=== PATIENT | female | born 1960 | race Caucasian/White ===

== ENCOUNTER 2020-10-11 11:52 | Outpatient (REF) | payer BC, SELFPAY ==
[2020-10-11 14:08] LABS: MANUAL DIFF FLAG NO
[2020-10-11 14:11] LABS: Glucose Urine UA NEG (NEG); Leukocyte Esterase Urine NEG (NEG); Nitrite Urine NEG (NEG); PH 6.5 (5.0-8.0); Specific Gravity - Urine 1.015 (1.005-1.025); Urine Blood NEG (NEG); Urine Ketones NEG (NEG); Urine Protein NEG (NEG-TRACE)
[2020-10-11 14:17] LABS: Basophils Percent Auto 0.4 % (0-2); Eosinophils Absolute Auto 0.2 X10*3/uL (0.0-0.4); Eosinophils Percent Auto 2.7 % (0-4); Hematocrit 43.7 % (37-47); Hemoglobin 14.2 g/dl (12.0-16.0); Imm Gran Abs Auto 0.05 X10*3/uL (0.00-0.03); Imm Gran Pct Auto 0.7 % (0.0-0.4); Lymphocytes Absolute Auto 1.6 X10*3/uL (1.2-4.9); Lymphocytes Percent Auto 21.9 % (20-40); Mean Corpuscular HGB Conc 32.5 g/dl (31.0-35.0); Mean Corpuscular Hemoglobin 29.9 pg (27.0-33.0); Mean Platelet Volume 11.2 fL (9.4-12.3); Monocytes Absolute Auto 0.5 X10*3/uL (0.1-1.2); Monocytes Percent Auto 6.8 % (2-11); Neutrophils Percent Auto 67.5 % (45-73); Platelet Count 377 X10*3/uL (160-400); Red Blood Count 4.75 X10*6/uL (4.20-5.50); Red Cell Distribution Width 12.2 % (11.0-16.0); White Blood Count 7.5 X10*3/uL (4.8-10.8)
[2020-10-11 14:23] LABS: Appearance Urine HAZY; Color Urine YELLOW
[2020-10-11 14:40] LABS: Bacteria Urine 1+ /LPF; RBC Urine 0-2 /HPF (0); Squamous Epithelial Cell Urine 2+ /LPF; WBC Urine 0-2 /HPF (0-4)
[2020-10-11 14:59] LABS: Alanine Aminotransferase 29 U/L (0-31); Albumin Level 4.4 g/dL (3.5-5.0); Alkaline Phosphatase 45 U/L (39-117); Anion Gap 14 (12-20); Aspartate Amino Transferase 22 U/L (5-31); Bilirubin Total 0.9 mg/dL (0.0-1.0); Blood Urea Nitrogen 13 mg/dL (9-16); Calcium 9.7 mg/dL (8.4-10.2); Carbon Dioxide 29 mmol/L (22-29); Chloride 103 mmol/L (96-108); Cholesterol 207 mg/dL; Estimated Glomerular Filt Rate > 60; Glucose Fasting 87 mg/dL (60-99); HDL Cholesterol 83 mg/dL; LDL Cholesterol Calculated 116 mg/dl; Sodium 141 mmol/L (135-145); Triglycerides 40 mg/dL
[2020-10-11 15:03] LABS: Thyroid Stimulating Hormone 1.52 uIU/mL (0.32-4.0); Vitamin D 25-OH Total 32.9 ng/mL (>30)
== END 2020-10-11 11:53 | disposition home or self-care (01) ==
LOC: HO.HMGCLDS 11:52
PROVIDERS: PCP Internal Medicine; Visit Provider Internal Medicine
DX: Z00.00 Encounter for general adult medical examination without abnormal findings (principal); F32.9 Major depressive disorder, single episode, unspecified; J45.40 Moderate persistent asthma, uncomplicated; E55.9 Vitamin D deficiency, unspecified
CPT/HCPCS: 36415; 80053; 80061; 81001; 82306; 84443; 85025

== ENCOUNTER 2020-10-20 16:03 | Outpatient (REF) | payer BC, SELFPAY ==
--- NOTE | ~2020-10-20 | XR_ITS ---
EXAMINATION: XR KNEE, LEFT CLINICAL INFORMATION: Pain left knee COMPARISON: None TECHNIQUE: Four views of the left knee. FINDINGS: The tricompartment joint space with its maintain normal. No bony erosive changes seen. There is no visible fracture or dislocation. There is sclerotic density along the posterior margin of distal femur. Likely No abnormal joint effusion seen. XR/XR knee LT 4V IMPRESSION: Unremarkable left knee exam except for sclerotic lesion distal femur along the posterior cortical margin. There is no periosteal reaction or endosteal scalloping or thickening. Question nonossifying fibroma, fibrous dysplasia, osteoblastoma or enchondroma.
== END 2020-10-20 16:04 | disposition home or self-care (01) ==
LOC: HO.HMGCX 16:03
PROVIDERS: PCP Internal Medicine; Visit Provider Nurse Practitioner Family
DX: M25.562 Pain in left knee (principal)
CPT/HCPCS: 73564

== ENCOUNTER → 2020-10-26 10:13 | Outpatient (BNVA) | payer BC, SELFPAY | PROVIDERS: PCP Internal Medicine; Visit Provider Orthopaedic Surgery ==

== ENCOUNTER 2022-02-24 14:29 | Outpatient (REF) | payer BC, SELFPAY ==
[2022-02-24 16:23] LABS: MANUAL DIFF FLAG NO
[2022-02-24 16:28] LABS: Basophils Percent Auto 0.4 % (0-2); Eosinophils Absolute Auto 0.2 X10*3/uL (0.0-0.4); Eosinophils Percent Auto 3.6 % (0-4); Hematocrit 42.4 % (37.0-47.0); Hemoglobin 14.2 g/dl (12.0-16.0); Imm Gran Abs Auto 0.02 X10*3/uL (0.00-0.03); Imm Gran Pct Auto 0.4 % (0.0-0.4); Lymphocytes Absolute Auto 1.5 X10*3/uL (1.2-4.9); Lymphocytes Percent Auto 32.4 % (20-40); Mean Corpuscular HGB Conc 33.5 g/dl (31.0-35.0); Mean Corpuscular Hemoglobin 29.8 pg (27.0-33.0); Mean Corpuscular Volume 89.1 fL (80.0-98.0); Mean Platelet Volume 11.3 fL (9.4-12.3); Monocytes Absolute Auto 0.4 X10*3/uL (0.1-1.2); Monocytes Percent Auto 7.4 % (2-11); Neutrophils Absolute Auto 2.7 x10*3/uL (2.0-8.3); Neutrophils Percent Auto 55.8 % (45-73); Platelet Count 299 X10*3/uL (160-400); Red Blood Count 4.76 X10*6/uL (4.20-5.50); Red Cell Distribution Width 12.3 % (11.0-16.0); White Blood Count 4.8 X10*3/uL (4.8-10.8)
[2022-02-24 16:40] LABS: Alanine Aminotransferase 22 U/L (0-31); Albumin Level 4.3 g/dL (3.5-5.0); Alkaline Phosphatase 38 U/L (39-117); Anion Gap 14 (12-20); Aspartate Amino Transferase 20 U/L (5-31); Bilirubin Total 0.7 mg/dL (0.0-1.0); Blood Urea Nitrogen 11 mg/dL (9-16); Calcium 9.6 mg/dL (8.4-10.2); Carbon Dioxide 27 mmol/L (22-29); Chloride 105 mmol/L (96-108); Cholesterol 188 mg/dL; Estimated Glomerular Filt Rate > 60; Glucose Fasting 82 mg/dL (60-99); HDL Cholesterol 75 mg/dL; LDL Cholesterol Calculated 105 mg/dl; Potassium 4.1 mmol/L (3.3-5.1); Sodium 142 mmol/L (135-145); Total Protein 6.7 g/dL (6.5-8.0); Triglycerides 42 mg/dL
[2022-02-24 17:00] LABS: Vitamin D 25-OH Total 33.6 ng/mL (>30)
== END 2022-02-24 14:30 | disposition home or self-care (01) ==
LOC: HO.HMGCLDS 14:29
PROVIDERS: PCP Internal Medicine; Visit Provider Internal Medicine
DX: Z00.00 Encounter for general adult medical examination without abnormal findings (principal); J45.40 Moderate persistent asthma, uncomplicated; E55.9 Vitamin D deficiency, unspecified; F32.9 Major depressive disorder, single episode, unspecified; E66.09 Other obesity due to excess calories; Z68.39 Body mass index [BMI] 39.0-39.9, adult
CPT/HCPCS: 36415; 80053; 80061; 82306; 85025

== ENCOUNTER 2022-03-16 13:23 | Outpatient (REF) | payer BC, SELFPAY ==
--- NOTE | ~2022-03-16 | MM_ITS ---
EXAMINATION: BONE DENSITOMETRY CLINICAL INDICATION: Osteoporosis. COMPARISON: Previous BD dated 11/15/2018 and baseline BD dated 04/09/2015. TECHNIQUE: Using a [employer] DXA System (software version: 13.1) manufactured by [employer], dual-energy x-ray absorptiometry was performed of the lumbar spine and left hip. The images are of good technical quality. Summary results are attached. FINDINGS: AP SPINE L1-L2 (excluding L3 and L4): The data of L1-L4 has been changed to exclude the L3 and L4 vertebral bodies, because mild degenerative changes at these levels may cause overestimation of lumbar spine density. Current: BMD 0.905 g/cm2, Z-score -2.0, T-score -2.2, osteopenia, 17.1% increase from previous, 15.6% increase from baseline (<5% change is not significant). Prior: BMD 0.773 g/cm2. Baseline: BMD 0.783 g/cm2. LEFT FEMUR, NECK: Current: BMD 0.813 g/cm2, Z-score -1.0, T-score -1.6, osteopenia. Prior: BMD 0.774 g/cm2. Baseline: BMD 0.833 g/cm2. LEFT FEMUR, TOTAL: Current: BMD 0.992 g/cm2, Z-score 0.1, T-score -0.1, normal, 8.7% increase from previous, 4.6% increase from baseline (<5% change is not significant). Prior: BMD 0.913 g/cm2. Baseline: BMD 0.948 g/cm2. IDENTIFIED RISK FACTORS: Menopause. HISTORY OF FRACTURE: None listed. MEDICATIONS: Calcium, vitamin D, bisphosphonate. MM/XR DEXA axial skeleton IMPRESSION: 1. DIAGNOSIS: Osteopenia based on the lowest T-score value of -2.2 in the lumbar spine applying World Health Organization criteria. 2. 10-YEAR FRACTURE RISK PREDICTION, FRAX: Not performed in this patient on estrogen or bone building treatments. 3. Treatment Recommendations: NOF guidelines recommend consideration for treatment in postmenopausal women and men age 50 and older presenting with the following: -A hip or vertebral (clinical or morphometric) fracture. -T-score less than or equal to -2.5 at the femoral neck or spine after appropriate evaluation to exclude secondary causes. -Low bone mass at the hip or spine and a 10-year fracture probability by FRAX of greater than or equal to 3% for hip fracture or greater than or equal to 20% for major osteoporotic fracture based on the [place] adapted WHO algorithm. 4. Other Recommendations: All treatment decisions require clinical judgment and consideration of individual patient factors, including patient preferences, comorbidities, previous drug use, risk factors not captured in the FRAX model (e.g. frailty, falls, vitamin D deficiency, increased bone turnover, interval significant decline in bone density) and possible under or overestimation of fracture risk by FRAX. Additional medical evaluation for secondary cause of low bone mineral density may be appropriate. FUTURE SCAN RECOMMENDATION: People with diagnosed cases of osteoporosis or at high risk for fracture should have regular bone mineral density tests. For patients eligible for Medicare, routine testing is allowed once every 2 years. The testing frequency can be increased to one year for patients who have rapidly progressing disease, those who are receiving or discontinuing medical therapy to restore bone mass, or have additional risk factors.
--- NOTE | ~2022-03-16 | MM_ITS ---
EXAMINATION: MM SCREENING DIGITAL BREAST TOMOSYNTHESIS, BILATERAL CLINICAL INFORMATION: Screening. Asymptomatic. The lifetime risk of breast cancer based on the Tyrer-Cuzick Model is %. Additional annual screening with breast MRI may be of benefit in women with a score of 20% or greater. COMPARISON: Mammography: November 21, 2019 and studies dating back to April 28, 2009 TECHNIQUE: Digital breast tomosynthesis is performed in both the craniocaudal and mediolateral oblique views along with computer-aided detection (CAD). Synthesized 2D images are generated from the tomosynthesis. FINDINGS: The breasts are almost entirely fatty (ACR BI-RADS breast composition Category a). There are no new significant masses, abnormal calcifications, or other abnormalities. MM/MM tomosynthesis screening BI IMPRESSION: No significant changes from prior exam. ASSESSMENT: BI-RADS 1: Negative RECOMMENDATION: Routine annual mammography screening. This patient's information was entered into a reminder system with a target due date for their next mammogram.
== END 2022-03-16 13:24 | disposition home or self-care (01) ==
LOC: HO.MAMMO 13:23
PROVIDERS: Visit Provider Obstetrics & Gynecology
DX: Z12.31 Encounter for screening mammogram for malignant neoplasm of breast (principal); M81.0 Age-related osteoporosis without current pathological fracture; Z78.0 Asymptomatic menopausal state; Z79.83 Long term (current) use of bisphosphonates
CPT/HCPCS: 77063; 77067; 77080

== ENCOUNTER 2023-03-19 13:20 | Outpatient (REF) | payer BC, SELFPAY ==
--- NOTE | ~2023-03-19 | MM_ITS ---
EXAMINATION: MM SCREENING DIGITAL BREAST TOMOSYNTHESIS, BILATERAL CLINICAL INFORMATION: Screening. Asymptomatic. COMPARISON: Mammography: This study is compared with prior exams dating back to 2017. TECHNIQUE: Digital breast tomosynthesis is performed in both the craniocaudal and mediolateral oblique views along with computer-aided detection (CAD). Synthesized 2D images are generated from the tomosynthesis. FINDINGS: The breasts are almost entirely fatty (ACR BI-RADS breast composition Category a). There are no significant masses, abnormal calcifications, or other abnormalities. MM/MM tomosynthesis screening BI IMPRESSION: No mammographic evidence of malignancy. ASSESSMENT: BI-RADS BI-RADS 1 - Negative RECOMMENDATION: Routine annual mammography screening. 1 year F/U This examination should not preclude the clinical evaluation of a suspicious palpable abnormality. This patient's information was entered into a reminder system with a target due date for their next mammogram.
== END 2023-03-19 13:21 | disposition home or self-care (01) ==
LOC: HO.MAMMO 13:20
PROVIDERS: PCP Internal Medicine; Visit Provider Internal Medicine
DX: Z12.31 Encounter for screening mammogram for malignant neoplasm of breast (principal)
CPT/HCPCS: 77063; 77067

== ENCOUNTER → 2023-03-19 13:30 | Outpatient (BNV) | payer BC, SELFPAY | PROVIDERS: PCP Internal Medicine; Visit Provider Radiology Diagnostic Radiology | DX: Z12.31 Encounter for screening mammogram for malignant neoplasm of breast (principal) | CPT/HCPCS: 77063; 77067 ==

== ENCOUNTER 2024-03-21 14:57 | Outpatient (REF) | payer BC, SELFPAY ==
[2024-03-21 16:21] LABS: MANUAL DIFF FLAG NO
[2024-03-21 16:33] LABS: Basophils Percent Auto 0.5 % (0-2); Eosinophils Absolute Auto 0.2 X10*3/uL (0.0-0.4); Eosinophils Percent Auto 3.4 % (0-4); Hematocrit 40.6 % (37.0-47.0); Hemoglobin 13.2 g/dl (12.0-16.0); Imm Gran Abs Auto 0.02 X10*3/uL (0.00-0.03); Imm Gran Pct Auto 0.3 % (0.0-0.4); Lymphocytes Absolute Auto 1.7 X10*3/uL (1.2-4.9); Lymphocytes Percent Auto 27.4 % (20-40); Mean Corpuscular HGB Conc 32.5 g/dl (31.0-35.0); Mean Corpuscular Hemoglobin 29.7 pg (27.0-33.0); Mean Corpuscular Volume 91.4 fL (80.0-98.0); Mean Platelet Volume 10.7 fL (9.4-12.3); Monocytes Absolute Auto 0.6 X10*3/uL (0.1-1.2); Neutrophils Absolute Auto 3.7 x10*3/uL (2.0-8.3); Neutrophils Percent Auto 59.4 % (45-73); Platelet Count 311 X10*3/uL (160-400); Red Blood Count 4.44 X10*6/uL (4.20-5.50); Red Cell Distribution Width 12.7 % (11.0-16.0); White Blood Count 6.2 X10*3/uL (4.8-10.8)
[2024-03-21 17:05] LABS: Alanine Aminotransferase 24 U/L (0-31); Albumin Level 3.9 g/dL (3.5-5.0); Alkaline Phosphatase 40 U/L (39-117); Anion Gap 8 (12-20); Aspartate Amino Transferase 22 U/L (5-31); Bilirubin Total 0.9 mg/dL (0.0-1.0); Blood Urea Nitrogen 16 mg/dL (9-16); Calcium 9.1 mg/dL (8.4-10.2); Carbon Dioxide 30 mmol/L (22-29); Chloride 107 mmol/L (96-108); Cholesterol 186 mg/dL (<200); Estimated Glomerular Filt Rate > 60; Glucose Fasting 81 mg/dL (60-99); HDL Cholesterol 81 mg/dL (>40); LDL Cholesterol Calculated 96 mg/dL (<100); Potassium 4.2 mmol/L (3.3-5.1); Sodium 141 mmol/L (135-145); Total Protein 6.5 g/dL (6.5-8.0); Triglycerides 47 mg/dL (<150)
[2024-03-21 17:09] LABS: Thyroid Stimulating Hormone 1.27 uIU/mL (0.32-4.0); Vitamin D 25-OH Total 42.5 ng/mL (>30)
== END 2024-03-21 14:58 | disposition home or self-care (01) ==
LOC: HO.HMGCLDS 14:57
PROVIDERS: PCP Internal Medicine; Visit Provider Internal Medicine
DX: E66.01 Morbid (severe) obesity due to excess calories (principal); J45.40 Moderate persistent asthma, uncomplicated; E55.9 Vitamin D deficiency, unspecified; F32.9 Major depressive disorder, single episode, unspecified; Z12.11 Encounter for screening for malignant neoplasm of colon
CPT/HCPCS: 36415; 80053; 80061; 82306; 84443; 85025

== ENCOUNTER 2024-03-24 13:30 | Outpatient (REF) | payer BC, SELFPAY ==
--- NOTE | ~2024-03-24 | MM_ITS ---
EXAMINATION: MM SCREENING DIGITAL BREAST TOMOSYNTHESIS, BILATERAL CLINICAL INFORMATION: Screening. Asymptomatic. COMPARISON: Mammography: Comparison is made with available priors TECHNIQUE: Digital breast mammography with tomosynthesis is performed in both the craniocaudal and mediolateral oblique views along with computer-aided detection (CAD). FINDINGS: There are scattered areas of fibroglandular density (ACR BI-RADS breast composition Category b). There are no significant masses, abnormal calcifications, or other abnormalities. MM/MM tomosynthesis screening BI IMPRESSION: No mammographic evidence of malignancy. ASSESSMENT: BI-RADS BI-RADS 1 - Negative RECOMMENDATION: Routine annual mammography screening. 1 year F/U This examination should not preclude the clinical evaluation of a suspicious palpable abnormality. This patient's information was entered into a reminder system with a target due date for their next mammogram. Electronically signed by: Leslie Parks DO 04/04/2024 10:48 AM EDT
== END 2024-03-24 13:31 | disposition home or self-care (01) ==
LOC: HO.MAMMO 13:30
PROVIDERS: PCP Internal Medicine; Visit Provider Internal Medicine
DX: Z12.31 Encounter for screening mammogram for malignant neoplasm of breast (principal)
CPT/HCPCS: 77063; 77067

== ENCOUNTER → 2024-03-24 13:45 | Outpatient (BNV) | payer BC, SELFPAY | PROVIDERS: PCP Internal Medicine; Visit Provider Internal Medicine | DX: Z12.31 Encounter for screening mammogram for malignant neoplasm of breast (principal) | CPT/HCPCS: 77063; 77067 ==

== ENCOUNTER 2024-12-03 13:06 | Outpatient (AMB) | payer BC, SELFPAY ==
--- NOTE | 2024-12-03 13:05 | MHC.PC.OV ---
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 Required: No Accompanied by: Self / Same As Patient Allergies erythromycin base (Erythromycin Base) Allergy (Mild, Unverified 12/03/24 13:26) HIVES Medication List - Last Reconciled 12/03/24 by Nicole Curry PA-C albuterol sulfate 90 mcg/actuation inhalation alendronate 70 mg PO QWEEK ascorbate calcium (vitamin C) PO bupropion HCl SR 200 mg (2 x 100 mg) PO BID 90 days cholecalciferol (vitamin D3) 50 mcg PO DAILY citalopram 40 mg PO DAILY fluticasone propion-salmeterol 250-50 mcg/dose 1 ea PO BID fluticasone propionate 50 mcg/actuation 1 spray intranasal DAILY montelukast 10 mg PO QPM nystatin topical BID nystatin (Klayesta) 1 appl topical BID PRN omeprazole 20 mg PO DAILY Tobacco use date assessed: 12/03/24 Dental Screening Dental Screen Date: 12/03/24 Did you have a dental visit in the last 12 months?: Yes Did you have a dental problem in the last 6 months where you did not have access to dental care?: No Was dental information given to patient?: Patient has dentist HPI follow up HPI Details The patient is a 64-year-old female presenting for a new patient appointment and medication management. The patient has a history of asthma, for which she uses an albuterol inhaler as needed and a combination inhaler containing fluticasone and salmeterol. She reports using the emergency inhaler very rarely. She is also being treated for anxiety and depression with citalopram and bupropion. The patient expresses concerns about the effectiveness of her current dose of citalopram and is considering an increase in dosage. The patient has gastroesophageal reflux disease (GERD) and is taking omeprazole for management. She also has a history of fungal infections for which she uses nystatin. The patient reports a history of hypertension, with previous readings around 135 mmHg systolic, which she considered normal. She is advised to monitor her blood pressure regularly to determine if medication is necessary. [facility] Medical History (Updated 12/03/24 @ 14:42 by Nicole Curry PA-C) Fungal infection GERD (gastroesophageal reflux disease) History of mammogram (~03/24/24) Class 2 obesity with body mass index (BMI) of 37.0 to 37.9 in adult Primary hypertension Obstructive sleep apnea Vitamin D deficiency Depression Establishing care with new doctor, encounter for Asthma Surgical History History of colonoscopy (~10/23/13) Hx of cholecystectomy Previous section Family History Father BP (high blood pressure) Prostate cancer COPD (chronic obstructive pulmonary disease) Mother Diabetes High cholesterol Skin cancer Pancreatic cancer Social History Housing: House Alcohol intake: current Alcohol intake frequency: holidays/special occasions only Patient Tobacco Use Status: Former Tobacco user service: No Current occupational status: employed and retired Cognitive needs: No Hearing needs: No Vision needs: Yes (rx glasses) Questionnaire PHQ-9 Over the last 2 weeks, how often have you been bothered by any of the following problems? 1. Little interest or pleasure in doing things: not at all 2. Feeling down, depressed, or hopeless: not at all 3. Trouble falling or staying asleep, or sleeping too much: not at all 4. Feeling tired or having little energy: not at all 5. Poor appetite or overeating: not at all 6. Feeling bad about yourself - or that you are a failure or have let yourself or your family down: not at all 7. Trouble concentrating on things, such as reading the newspaper or watching television: not at all 8. Moving or speaking so slowly that other people could have noticed. Or the opposite - being so fidgety or restless that you have been moving around a lot more than usual: not at all 9. Thoughts that you would be better off or of hurting yourself in some way: not at all Total score: 0 Depression Screening Interpretation: Negative Depression Screening Done: Yes 50536 - PHQ-9 Billing: Yes Source: Developed by Drs. Zafar Sands, Winifred Lomeli, Wilfrid Carvajal and colleagues, with an educational nura from [employer]. Thrive Questionnaire Date Thrive assessed: 12/03/24 I am a: Patient What is your living situation today?: I have a steady place to live Within the past 12 months, did the food you bought not last and you didn't have the money to get more?: Never true Within the past 12 months, did you worry whether your food would run out before you got money to buy more?: Never true Do you have trouble paying for medicines?: No Do you have trouble getting transportation to medical appointments?: No Do you have trouble paying your heating and electricity bill?: No Do you have trouble taking care of your child, family member or friend?: No Do you have trouble with day-to-day activities such as bathing, preparing meals, shopping, managing finances, etc.?: No Are you currently unemployed and looking for a job?: No Are you interested in more education?: No Please select the resources that you would like help with: None THRIVE Score: 0 AUDIT C Alcohol Use Questionnaire (AUDIT-C) 1. How often do you have a drink containing alcohol?: Monthly or less 2. How many drinks containing alcohol do you have on a typical day when you are drinking?: 1 or 2 3. How often do you have six or more drinks on one occasion?: Never Total Score: 1 Score Reviewed/Action Taken: No SHAQ-7 AMB Questionnaire SHAQ-7 Date SHAQ - 7 assessed: 12/03/24 Feeling nervous, anxious, or on edge: 3 = Nearly every day Not being able to stop or control worryin = Nearly every day Worrying too much about different things: 3 = Nearly every day Trouble relaxin = Several days Being so restless that it is hard to sit still: 3 = Nearly every day Becoming easily annoyed or irritable: 1 = Several days Feeling afraid as if something awful might happen: 3 = Nearly every day Total SHAQ-7 score (0-4 normal; 5-9 mild; 10-14 moderate; 15-21 severe): 17 Source: Developed by Winifred Claudio, Wilfrid Carvajal and colleagues, with an educational nura from [employer]. SHAQ-7 Assessment Billing SHAQ-7 Assessment Tool: SHAQ-7 Assessment 84390 Review of Systems Const Details: - Respiratory: Reports asthma, uses albuterol inhaler rarely. - Psychiatric: Reports anxiety and depression, concerns about current medication dosage. - Gastrointestinal: Reports gastroesophageal reflux disease, managed with omeprazole. - Dermatological: Reports history of fungal infections, uses nystatin. - Cardiovascular: Reports history of hypertension, previous readings around 135 mmHg systolic. All systems reviewed & are unremarkable except as noted in HPI and below Physical exam (Primary Care) Vital Signs: Last Vital Signs Temp 97.8 F 12/03/24 13:08 Pulse 86 12/03/24 13:08 Resp 14 12/03/24 13:08 BP 160/67 H 12/03/24 13:08 Pulse Ox 96 12/03/24 13:08 Oxygen Delivery Method Room Air 12/03/24 13:08 Care Plan Goal for BP management: <140/90 patient to keep blood pressure diary and bring it to her new primary provider in [place] or to call us back BMI result Body Mass Index 37.7 Tobacco/Smoking Status: Tobacco use Status Tobacco use date assessed 12/03/24 12/03/24 13:07 Patient Tobacco Use Status Former Tobacco user 12/03/24 13:17 PHQ-9: PHQ-9 Score PHQ-9: Total score 0 12/03/24 13:07 Depression Screening Interpretation: Negative Thrive Assessment: Date of Thrive Assessment Date Thrive assessed 12/03/24 12/03/24 13:07 Const Other: Appearance: Alert. Oriented X3. No acute distress. Head: Normal external exam. Normocephalic. Atraumatic. Eyes: Pupils are equal, round, and reactive to light. Extraocular movements intact. Conjunctiva and sclera normal. Eyelids normal. Ears: External auditory canal normal. Tympanic membranes normal. Throat: Pharynx normal. Uvula midline. Moist mucous membranes. Neck: Normal inspection. Neck supple. Full range of motion. No adenopathy. Thyroid Normal. No meningeal signs. No neck mass noted. Cardiovascular: Normal heart rate and rhythm. Heart sound normal. No murmurs noted. Pulses normal throughout. Respiratory: No respiratory distress. Painless inspiration. Breath sounds normal. No wheezes/rales/rhonchi noted. Chest nontender. No accessory muscle usage noted or decreased air movement noted. Abdomen: Soft and nontender. Bowel sounds normal in all 4 quadrants. No distention noted. No organomegaly noted. No visible injury noted. Back: No costovertebral angle tenderness. Full range of motion noted. Skin: Skin warm and dry. Normal skin color. Normal skin turgor. No rashes/lesions/lacerations noted. Extremities: No lower extremity edema. Extremities exhibit normal range of motion. Extremities nontender. Neuro: Oriented X 3. No motor deficit. No sensory deficit. Reflexes normal. Coding Level of Care Code New Pt Level 4 (43801) Complex EM visit Add On G2211 Diagnoses Establishing care with new doctor, encounter for Z76.89 Depression F32.A Vitamin D deficiency E55.9 Obstructive sleep apnea G47.33 Primary hypertension I10 Class 2 obesity with body mass index (BMI) of 37.0 to 37.9 in adult E66.812; Z68.37 Asthma J45.909 GERD (gastroesophageal reflux disease) K21.9 Fungal infection B49 Additional Codes PHQ-9 - 33728 - PHQ-9 Billing: Yes ([id number]) SHAQ-7 Assessment Billing - SHAQ-7 Assessment Tool: SHAQ-7 Assessment 51491 ([id number]) Time Spent (min) 40 Assessment & Plan Assessment & Plan (1) Establishing care with new doctor, encounter for: Code(s): Z76.89 - Persons encountering health services in other specified circumstances Category: Medical (2) Depression: Code(s): F32.A - Depression, unspecified Category: Medical Plan: The patient is considering an increase in her citalopram dosage and will be referred to a psychiatrist for further evaluation. Will also add Atarax every 8 hours prn for anxiety. Condition is chronic and stable continue to monitor. (3) Vitamin D deficiency: Code(s): E55.9 - Vitamin D deficiency, unspecified Category: Medical Plan: Condition is chronic and stable will continue to monitor. (4) Obstructive sleep apnea: Code(s): G47.33 - Obstructive sleep apnea (adult) (pediatric) Category: Medical Plan: Condition is chronic and stable continue to monitor. (5) Primary hypertension: Code(s): I10 - Essential (primary) hypertension Category: Medical Plan: The patient is advised to monitor her blood pressure regularly and maintain a log to determine if antihypertensive medication is necessary. (6) Class 2 obesity with body mass index (BMI) of 37.0 to 37.9 in adult: Code(s): E66.812 - Obesity, class 2; Z68.37 - Body mass index [BMI] 37.0-37.9, adult Category: Medical Plan: Patient to improve diet and exercise regimen. Condition is chronic and stable continue to monitor. (7) Asthma: Code(s): J45.909 - Unspecified asthma, uncomplicated Category: Medical Plan: The patient will continue using her albuterol inhaler as needed and the combination inhaler containing fluticasone and salmeterol. Condition is chronic and stable continue to monitor. (8) GERD (gastroesophageal reflux disease): Code(s): K21.9 - Gastro-esophageal reflux disease without esophagitis Category: Medical Plan: The patient will continue taking omeprazole for management of her GERD symptoms. Condition is chronic and stable will continue to monitor. (9) Fungal infection: Code(s): B49 - Unspecified mycosis Category: Medical Plan: The patient will continue using nystatin for her fungal infections as needed. Condition is chronic and stable continue to monitor. Plan Plan Patient was informed and verbally consented to the use of an ambient scribe for clinic note documentation during this visit. 1. Asthma The patient will continue using her albuterol inhaler as needed and the combination inhaler containing fluticasone and salmeterol. 2. Anxiety And Depression The patient is considering an increase in her citalopram dosage and will be referred to a psychiatrist for further evaluation. 3. Gastroesophageal Reflux Disease (Gerd) The patient will continue taking omeprazole for management of her GERD symptoms. 4. Fungal Infections The patient will continue using nystatin for her fungal infections as needed. 5. Hypertension The patient is advised to monitor her blood pressure regularly and maintain a log to determine if antihypertensive medication is necessary. I discussed with the patient the importance of monitoring her blood pressure regularly to assess the need for antihypertensive medication. We also talked about the possibility of increasing her citalopram dosage and the referral to a psychiatrist for further evaluation. The patient was advised to continue her current medications for asthma, GERD, and fungal infections. Orders: Orders Complete Blood Count Auto Diff Today Z00.00 - Encounter for general adult medical examination without abnormal findings Magnesium Today Z00.00 - Encounter for general adult medical examination without abnormal findings Vitamin B12 and Folate Today Z00.00 - Encounter for general adult medical examination without abnormal findings Liver Panel Today Z00.00 - Encounter for general adult medical examination without abnormal findings Vitamin D 25-OH Total Today Z00.00 - Encounter for general adult medical examination without abnormal findings C Reactive Protein Today Z00.00 - Encounter for general adult medical examination without abnormal findings Comprehensive Industry. Panel Fast Today Z00.00 - Encounter for general adult medical examination without abnormal findings Hemoglobin A1c Today Z00.00 - Encounter for general adult medical examination without abnormal findings TSH reflex Free T4 Today Z00.00 - Encounter for general adult medical examination without abnormal findings Lipid Panel Today Z00.00 - Encounter for general adult medical examination without abnormal findings Erythrocyte Sedimentation Rate Today Z00.00 - Encounter for general adult medical examination without abnormal findings Referrals Psychiatry Outpatient Consultation Service F41.9 - Anxiety disorder, unspecified Medications: New hydroxyzine HCl 25 mg PO Q8H PRN 90 tabs 1RF anxiety Patient Instructions: - Monitor blood pressure regularly and maintain a log. - Continue using albuterol inhaler and combination inhaler as prescribed. - Take omeprazole as directed for GERD management. - Use nystatin for fungal infections as needed. - Follow up with a psychiatrist for evaluation of anxiety and depression medication.
[2024-12-03 13:08] VITALS: BP 160/67; PULSE 86; RESP 14; TEMP 36.6; O2SAT 96; BMI 37.7
--- OUTSIDE RECORDS SUMMARY | 2024-12-03 13:42 | XMS_ITS | Data Portability ---
Author Organization [facility], [facility] Address [address] [place] [address] Care Team Providers Care Finish Mender Name Role Phone JO-ANN MOREAU Primary Care Provider Assessment No assessment recorded. Plan of Treatment Reminders Order Date Submit Date Provider Last Modified By Organization Details Last Modified Time Details Appointments None recorded. Lab None recorded. Referral physical therapist referral 2023 [email or web address] Not available 09:17:08 Procedures None recorded. Surgeries None recorded. Imaging XR, foot, 3 or more view - room 101 recheck 3v foot wb 2023 024 [facility], [address], [place], [address], 4 09:17:09 XR, ankle, 3 or more view - room 112 right ankle, upload disc in room of foot 2023 024 [email or web address] [facility], [address], [place], [address], 4 15:47:34 Medication Orders None recorded. Patient TargetsNo targets recorded. Patient InstructionsNo instructions recorded. Reason for Referral Physical Therapist Referral for Sprain of talofibular ligament of right ankle Referring Physician: Henna Gutierres, Orthopedic Surgery, Encounter Date: 04/03/2024 Results Created Date Observation Date Name Description Value Unit Range Abnormal Flag Note LastModifiedBy Organization Detail LastModifiedTime 03/20/20 24 03/20/2024 XR, ankle , 3 or more view [email or web address]:/ [email or web address] ?Encry pted=s hAaTro YD8dLq bEUv6g %2BXZw aYqtaq 0bqfl% 2Fg9IQ a4ajBk vP9nXo QUaueC m3YtLR FvZlgJ JJ8mAn HZtai3 9c8765 AC0Kqa 3qNU6K jKiQtr MwF INTERFACE [facility] [address], [place], [address], 03/20/2024 13:27:30 03/20/20 24 03/20/2024 XR, ankle , 3 or more view http:/ [email or web address] ?Encry pted=s hAaTro YD8dLq bEUv6g %2BXZw aYqtaq 0bqfl% 2Fg9IQ a4ajBk vP9nXo QUaueC m3YtLR FvZl [place] HZtai3 2v9066 AC0Kqa 3qNU6K jKiQtr MwF INTERFACE [facility] [address] [facility] [address], [place], [address], 03/20/2024 13:27:32 04/03/20 24 04/03/2024 XR, foot, 3 or more view [email or web address]:/ [email or web address] ?Encry pted=s hAaTro YD8dLq bEUv6g %2BXZw aYqtaq 0bqfl% 2Fg9IQ a4ajBk vP9nXo QUaueC m3YtLR FvZl JJ8mAn HZtai3 7x2655 AC0Kqa H6NVqu mKiQtr MwF INTERFACE [facility] [address], [place], [address], 04/03/2024 10:38:39 04/03/20 24 04/03/2024 XR, foot, 3 or more view http:/ [email or web address] ?Encry pted=s hAaTro YD8dLq bEUv6g %2BXZw aYqtaq 0bqfl% 2Fg9IQ a4ajBk vP9nXo QUaueC m3YtLR FvZlgJ JJ8mAn HZtai3 7h6360 AC0Kqa H6NVqu mKiQtr MwF INTERFACE [facility] [address] [facility] [address] [facility] [address], [place], [address], 04/03/2024 10:38:41 Result Notes Documentation Provider Name and Address Organization Details Recorded Time Xr, Ankle, 3 Or More View : [email or web address]? Encrypted=dxOiDbzUH9qUbzX Uv6g%9IFIfqCvqfn5agak%2Fg 9ZNg1neWxvM2iYnTMoxjNu6Qk JPPhWjaDUY8qSnIRmvq51c711 6SB8Ebb1qKP4CkMlTrzJfT Not Available [facility] 03/20/2024 13:27: 31 Xr, Ankle, 3 Or More View : [email or web address]? Encrypted=njTaGrvKS4lKldU Uv6g%7MZQkuGgvje3oycq%2Fg 8PDr5sjYkuX9oGxHWxixGn6Od NUBdZomTHA6yQrOXhtu85z701 7QH0Pca1gBL9QgCgCorWlS Not Available [facility] 03/20/2024 13:27: 33 Xr, Foot, 3 Or More View : [email or web address]? Encrypted=apUiDyaRV7xVgtA Uv6g%3GUNriAkngr2irwf%2Fg 5EZp7prCeoK2nTvQQolmQr1Vd CZVhOlwKUI6yFeKQwoi45v615 9NS9MfuR7RJnriSlArdLhA Not Available [facility] 04/03/2024 10:38: 40 Xr, Foot, 3 Or More View : [email or web address]? Encrypted=wyTeGuiFF4qSwtS Uv6g%6XIFqbDqbfj2ciqe%2Fg 5PAw9dfAkjR8qLoVJewzRo9Im IYYoGjiZNO3oBeTLwrq88b451 0IQ8DuvU5ENqjrFfQlvLmO Not Available [facility] 04/03/2024 10:38: 42 Medical Equipment None Reported. Allergies Allergen ID Allergen Name Allergen Category Reaction Reaction Severity Criticality Documentation Date Start Date Code Code System Note Provider Name and Address Organization Details Recorded Time 20923 erythromy roger medicatio n Not available Not available Not available 08/06/20232022 4053 RxNorm Not Available [facility] 11:24:26 Medications Name Sig Start Date Stop Date Status Note LastModified by Organization Details LastModified Time citalopram 40 mg tablet TAKE 1 TABLET BY MOUTH DAILY active Not Available Not Available No t Available naltrexone 50 mg tablet TAKE 1/2 TABLET BY MOUTH TWICE DAILY active Not Available Not Available No t Available alendronate 70 mg tablet active Not Available Not Available Not Available bupropion HCl 100 mg tablet TAKE 2 TABLETS BY MOUTH TWICE DAILY active Not Available Not Available No t Available omeprazole 20 mg capsule,delay ed release TAKE 1 CAPSULE BY MOUTH DAILY 30 MINUTES BEFORE BREAKFAST active Not Available Not Available No t Available montelukast 10 mg tablet TAKE 1 TABLET BY MOUTH DAILY active Not Available Not Available No t Available fluticasone propionate 50 mcg/actuation nasal spray,suspens ion SHAKE LIQUID AND USE 1 SPRAY IN EACH NOSTRIL DAILY active Not Available Not Available No t Available cholecalcifer ol (vitamin D3) 50 mcg (2,000 unit) capsule TAKE 1 CAPSULE BY MOUTH DAILY active Not Available Not Available No t Available Wixela Inhub 250 mcg-50 mcg/dose powder for inhalation INHALE 1 PUFF BY MOUTH TWICE DAILY active Not Available Not Available No t Available Klayesta 100,000 unit/gram topical powder APPLY TOPICALLY NEEDED TWICE DAILY active Not Available Not Available No t Available Vitals Date Recorded Body height Body mass index (BMI) Body weight Provider Name and Address Organization Details Last Updated DateTime 06/06/2024 149.86 cm 42.4 kg/m2 75535.4 g Jose Ibarra [facility] 06/06/2024 11:28:10 Date Recorded Body height Body mass index (BMI) Body weight Provider Name and Address Organization Details Last Updated DateTime 03/20/2024 149.86 cm 42.4 kg/m2 91142.4 g Mara Alfaro [facility] 03/20/2024 13:13:19 Date Recorded Body height Body mass index (BMI) Body weight Provider Name and Address Organization Details Last Updated DateTime 04/03/2024 149.86 cm 42.4 kg/m2 52463.4 g Victoria godoy [place] Dimitri [facility] 04/03/2024 10:28:09 Social History None recorded. Functional Status None recorded. Mental Status None recorded. Family History Nothing Reported. Medical History Condition Response Asthma Y Sleep Apnea Y Gynecological HistoryNo gynecological history recorded. Obstetrics History GPAL:G 0 P 0 0 0 0 Past Encounters Encounter ID Performer Location Encounter Start Date Encounter Closed Date Diagnosis/Indication Diagnosis SNOMED-CT Code Diagnosis ICD10 Code Diagnosis Note [id number] HENNA GUTIERRES PA-C [facility] [address]st [address] [facility] [place] [address] 03/20/2024 13:00:42 04/10/2024 15:47:34 Acute ankle pain 2336667110 9105 M25.571 Sprain of right foot 818 0226231 4296972 S93.601A Sprain of talofibular ligament of right ankle 8775686488 4573949 S93.491A Closed fra cture of lateral malleolus 48198632 S82.61XA [id number] HENNA GUTIERRES PA-C [facility] 1[address] [place] [address] 04/03/2024 10:24:27 04/29/2024 09:17:08 Acute ankle pain 3719129116 9105 M25.571 Sprain of right foot 436 3070630 9583424 S93.601A Sprain of talofibular ligament of right ankle 9163637950 7775107 S93.491A Closed fra cture of lateral malleolus 55006970 S82.61XA Pain in right foot 00580 63097 85565 M79.972 [id number] HENNA GUTIERRES PA-C [facility] [address] [place] [address] 06/06/2024 10:52:44 06/19/2024 10:03:58 Sprain of talofibular ligament of right ankle 9454061419 7250555 S93.491D Health Concerns Section Related Observation LastModified by Organization Detai ls LastModified Time None Recorded Concern Status LastModified by Organization Details LastModified Time None Recorded Advance Directives Directive None Recorded Payers Insurance Date Sequence Insurance Name Policy Number Policy [place] Covered Member ID Gamboa Member ID Guarantor Name 06/19/2024 1 [facility]: [employer] [id number] Daphney Rodriguez [id number] Daphney Rodriguez Notes Date Note Type Note Provider Name and Address Organization Details Recorded Time 4 text/html I am seeing this patient under the supervision of Dr. Nath, who was available but who did not see the patient. Chief Complaint: Right ankle and foot pain HPI: Patient is a pleasant 63-year-old female who sustained an injury to her right ankle and foot on 03/12/2024. She states she was walking in 1 direction and talking over her shoulder when she stepped into a hole twisted over top of her foot and ankle. She states she did not initially seek treatment until Sunday where she was seen at an [facility] urgent care affiliate. She had x-rays of her foot taken and was placed into a tall CAM walking boot. Patient endorses that she received a call later from the urgent care facility stating she had a fracture in her ankle and referred to follow-up with our group. Patient states she has minimal pain at rest has increased pain when walking in the tall CAM boot along the anterior lateral aspect of the ankle and foot. She also endorses pain along the dorsum of the foot when weightbearing. She states she has been working on active range of motion of her toes in the boot and has been compliant with wearing the boot. She is otherwise utilizing hewh-olq-akvekzy prescriptions like Tylenol and ibuprofen to help control the pain. PFMSH, Meds and ROS reviewed, updated and signed by me, and is located in the patient's chart. PHYSICAL EXAMINATION: The patient is well appearing and in no apparent distress. Alert and oriented x 3. Unseated examination patient has observable edema along the anterior lateral and dorsal lateral aspect of the foot and ankle. There is ecchymosis along the medial and lateral border of the foot as well as along the anterior and lateral aspect of the jaffe. No erythema is noted there is no warmth to touch. Patient is tender to palpation along the ATFL, CFL, lateral gutter space and syndesmosis at the distal third of the lower extremity as well as along the, dorsal lateral aspect of the foot from forefoot to midfoot. She denies tenderness elsewhere throughout the foot and ankle active range of motion: Dorsiflexion to neutral, plantarflexion inversion eversion within normal limits. Patient endorses discomfort with dorsiflexion plantarflexion range of motion. Manual muscle testing 4/5 in all 4 planes of motion limited due to pain in office today. No laxity is noted on exam. Sensory exam- reports sensation intact to light touch SP/DP/S/S/T distributions Palpable DP/PT pulses, foot warm and well perfused, appropriate capillary refill Calf is soft, supple, non-tender RADIOLOGY: X-rays were ordered, obtained 3 views of the foot at an outside facility were independently reviewed in office today show no acute fracture in the midfoot or forefoot. X-rays ordered obtained and independent reviewed in office today 3 views weightbearing ankle indicative of a small avulsion type fracture of the lateral malleolus there is no ankle mortise widening. IMPRESSION: Avulsion fracture of the lateral malleolus high-grade ankle sprain PLAN: Discussed the findings and situation with the patient today. At this time recommend continued conservative treatment in her tall CAM boot patient was encouraged to weight-bear as tolerated. She can utilize Tylenol and ibuprofen as needed for pain she was encouraged to come out of the boot and elevate working on sagittal plane range of motion as tolerated. Will plan to follow-up in 2 weeks with repeat imaging. Discussed with the patient at that time if she is doing well and tolerating weightbearing without any pain we will likely transition her from the walking boot into a lace up ankle brace starting physical therapy at that time. Patient expressed understanding agreement of plan. All her questions asked and answered. [facility] speech recognition song plugger software was used to create portions of this document. An attempt at proofreading has been made to minimize errors. Please call for corrections. HENNA GUTIERRES PA-C [address] [facility] [address], [place], [address], [place] - [place] [facility] 03/20/2024 13:54:49 4 text/html I am seeing this patient under the supervision of Dr. Nath, who was available but who did not see the patient. Chief Complaint: Right ankle and foot pain HPI: Patient is a pleasant 63-year-old female who sustained an injury to her right ankle and foot on 03/12/2024. She presents today stating she has no pain ambulating in the boot feels that some of the pain has gotten a little bit worse as her swelling has gone down however does not notices significantly over the last few days. She has been working on gentle range of motion without significant pain. PFMSH, Meds and ROS reviewed, updated and signed by me, and is located in the patient's chart. PHYSICAL EXAMINATION: The patient is well appearing and in no apparent distress. Alert and oriented x 3. Unseated examination patient has no observable edema or erythema ecchymosis along the anterior lateral aspect of the ankle and jaffe has subsided. Patient is tender to palpation along the ATFL, and distal fibula. She denies tenderness elsewhere throughout the foot and ankle active range of motion: Dorsiflexion to neutral, plantarflexion inversion eversion within normal limits. Patient denies pain with range of motion. Manual muscle testing 5/5 in all 4 planes of motion which is improvement from previous visit. No laxity is noted on exam. Sensory exam- reports sensation intact to light touch SP/DP/S/S/T distributionsPalpable DP/PT pulses, foot warm and well perfused, appropriate capillary refillCalf is soft, supple, non-tender RADIOLOGY: X-rays were ordered, obtained and independently reviewed in office today 3 views weightbearing foot. Does not show any fracture line or injury to the base of the fifth metatarsal no other acute injury. I also reviewed patient's previous ankle x-rays with her from previous visit we again discussed the small avulsion fracture that she has in the area. IMPRESSION: Avulsion fracture of the lateral malleolus high-grade ankle sprain PLAN: Discussed the findings and situation with the patient today. At this time I recommend continued conservative management transitioning from the boot into an ASO ankle brace starting formal physical therapy for active range of motion, gait retraining and ankle stability and proprioception. Will plan to follow-up in 2 weeks to assess how patient is doing. Patient expressed understanding agreement plan all her questions asked and answered. [facility] speech recognition song plugger software was used to create portions of this document. An attempt at proofreading has been made to minimize errors. Please call for corrections. HENNA GUTIERRES PA-C [address] [facility] [address], [place], [address], [facility] [place] [facility] 04/03/2024 10:48:22 5 text/html I am seeing this patient under the supervision of Dr. Nath, who was available but who did not see the patient. Chief Complaint: Right ankle and foot pain HPI: Patient is a pleasant 63-year-old female who sustained an injury to her right ankle and foot on 03/12/2024. Patient presents today in office and her regular work boots states she has not had any lingering symptoms with ambulating has been otherwise feeling good worked on strengthening activities and exercises. Occasional have a sharp shooting pain but this abates quickly. Denies any interval trauma fever chills paresthesia. PFMSH, Meds and ROS reviewed, updated and signed by me, and is located in the patient's chart. PHYSICAL EXAMINATION: The patient is well appearing and in no apparent distress. Alert and oriented x 3. Unseated examination patient has no observable edema or erythema ecchymosis along the anterior lateral aspect of the ankle and jaffe has subsided. Patient is non-tender to palpation along the ATFL, and distal fibula. She denies tenderness elsewhere throughout the foot and ankle active range of motion: Dorsiflexion to neutral, plantarflexion inversion eversion within normal limits. Patient denies pain with range of motion. Manual muscle testing 5/5 in all 4 planes of motion which is improvement from previous visit. No laxity is noted on exam. Sensory exam- reports sensation intact to light touch SP/DP/S/S/T distributionsPalpable DP/PT pulses, foot warm and well perfused, appropriate capillary refillCalf is soft, supple, non-tender RADIOLOGY: X-rays were ordered, obtained and independently reviewed in office today 3 views weightbearing foot. Does not show any fracture line or injury to the base of the fifth metatarsal no other acute injury. I also reviewed patient's previous ankle x-rays with her from previous visit we again discussed the small avulsion fracture that she has in the area. IMPRESSION: Avulsion fracture of the lateral malleolus high-grade ankle sprain PLAN: Discussed the findings and situation with the patient today. At this time I recommend continued conservative management. This patient is doing overall well there is no need for formal follow-up in office today we discussed in the event she has any increase or recurrence of her symptoms any interval trauma she should call and be seen in our office again. Patient expressed understanding agreement plan all her questions asked and answered. [facility] speech recognition song plugger software was used to create portions of this document. An attempt at proofreading has been made to minimize errors. Please call for corrections. HENNA GUTIERRES PA-C [address] [facility] [address], [place], [address], [facility] [place] [facility] 06/06/2024 11:44:52 OBGyn Episode No OBEpisode recorded.
--- OUTSIDE RECORDS SUMMARY | 2024-12-03 13:42 | XMS_ITS | Encounter Summary ---
Author Organization [facility] Address [address] [place] [address] Care Team Providers Care Computer Systems Integrator Name Role Phone Zafar Reynolds DO Primary Care Provider [phone] Encounter Details Date Type Department Care Team (Late st Contact Info) Description 08/26/2024 Lab Requisition [facility] - Main Lab [address] [facility] [place] [address] Phoenix Hernandez MD [address] [facility] [address] [place] [address] Encounter for screening for malignant neoplasm of colon Social History Tobacco Use Types Packs/Day Years Used Date Smoking Tobacco: Never Assessed Comments Unknown Sex and Gender Information Value Date Recorded Sex Assigned at Not on file Legal Sex Female 8:32 PM EST Gender Identity Not on file Sexual Orientation Not on file documented as of this encounter Plan of Treatment Not on file documented as of this encounter Procedures Procedure Name Priority Date/Time Associated Diagnosis Comments TISSUE EXAM Routine 08/25/2024 Encounter for screening for malignant neoplasm of colon documented in this encounter Results * Tissue Exam (08/25/2024) Final Diagnosis A. Cecum, polyp, biopsy: Tubular adenoma. B. Rectum polyp, biopsy: Tubular adenoma. 08/27/2024 10:32 AM EDT [facility] Clinical Information Screening for colorectal malignant neoplasm Polyp 08/27/2024 10:32 AM EDT [facility] Gross Description A. Large Intestine, Cecum, polyp biopsy: Labeled cecum colon polyp . Received in formalin is a soft, mares, 0.25 cm in greatest diameter polypoid tissue which is inked green at the base, wrapped in paper and submitted in toto in one cassette, one piece, multiple levels. B. Colon, rectum polyp biopsy: Labeled rectum colon polyp . Received in formalin is a 0.35 cm in greatest diameter mares, polypoid tissue which is inked black at the base, wrapped in paper and submitted in toto in one cassette, one piece, multiple levels. TS 08/27/2024 10:32 AM EDT [facility] Disclaimer Unless otherwise specified, all tissue is 10% NB formalin fixed and paraffin embedded. 08/27/2024 10:32 AM EDT [facility] Tissue Colon structure / Unknown 08/25/2024 08/26/2024 10:38 AM EDT Tissue specimen (specimen) Colon structure / Unknown 08/25/2024 08/26/2024 10:38 AM EDT us Phoenix Hernandez MD LAB PATHOLOGY ORDERABLES Fi nal Result [facility] [address] [place] [address], documented in this encounter Visit Diagnoses Diagnosis Encounter for screening for malignant neoplasm of colon documented in this encounter Care Teams Computer Systems Integrator Relationship Specialty Start Date End Date Zafar Reynolds DO [address] [place] [phone] PCP - General Internal Medicine 07/23/24 documented as of this encounter
== END 2024-12-03 13:42 | disposition home or self-care (01) ==
LOC: HO.HMCSH 13:06
PROVIDERS: PCP Internal Medicine; Visit Provider Physician Assistant Medical
DX: Z76.89 Persons encountering health services in other specified circumstances (principal); F32.A Depression, unspecified; E55.9 Vitamin D deficiency, unspecified; G47.33 Obstructive sleep apnea (adult) (pediatric); I10 Essential (primary) hypertension; E66.812 Obesity, class 2; Z68.37 Body mass index [BMI] 37.0-37.9, adult; J45.909 Unspecified asthma, uncomplicated; K21.9 Gastro-esophageal reflux disease without esophagitis; B49 Unspecified mycosis

== ENCOUNTER → 2024-12-03 13:06 | Outpatient (BNVA) | payer BC, SELFPAY | PROVIDERS: PCP Internal Medicine; Visit Provider Physician Assistant Medical | DX: G47.33 Obstructive sleep apnea (adult) (pediatric) (principal); J45.909 Unspecified asthma, uncomplicated; F41.9 Anxiety disorder, unspecified; F32.A Depression, unspecified; K21.9 Gastro-esophageal reflux disease without esophagitis; E55.9 Vitamin D deficiency, unspecified; I10 Essential (primary) hypertension; E66.812 Obesity, class 2; B49 Unspecified mycosis; Z68.37 Body mass index [BMI] 37.0-37.9, adult; Z76.89 Persons encountering health services in other specified circumstances | CPT/HCPCS: 96127 ==

== ENCOUNTER 2024-12-04 07:47 | Outpatient (REF) | payer BC, SELFPAY ==
--- OUTSIDE RECORDS SUMMARY | 2024-12-04 07:49 | XMS_ITS | Encounter Summary ---
Author Organization [facility] Address [address] [place] [address] Care Team Providers Care Chemical Compounder Name Role Phone Zafar Reynolds DO Primary Care Provider [phone] Encounter Details Date Type Department Care Team (Late st Contact Info) Description 08/26/2024 Lab Requisition [facility] - Main Lab [address] [facility] [place] [address] Phoenix Hernandez MD [address] [facility] [address] [place] [address] Encounter for screening for malignant neoplasm of [...] biopsy: Tubular adenoma. 08/27/2024 10:32 AM EDT [facility] Clinical Information Screening for colorectal malignant neoplasm Polyp 08/27/2024 10:32 AM EDT [facility] Gross Description A. Large Intestine, Cecum, [...] multiple levels. TS 08/27/2024 10:32 AM EDT [facility] Disclaimer Unless otherwise specified, all tissue is 10% NB formalin fixed and paraffin embedded. 08/27/2024 10:32 AM EDT [facility] Tissue Colon structure / Unknown 08/25/2024 08/26/2024 10:38 AM EDT Tissue specimen (specimen) Colon structure / Unknown 08/25/2024 08/26/2024 10:38 AM EDT us Phoenix Hernandez MD LAB PATHOLOGY ORDERABLES Fi nal Result [facility] [address] [place] [address], documented in this encounter Visit Diagnoses Diagnosis Encounter for screening for malignant neoplasm of colon documented in this encounter Care Teams Chemical Compounder Relationship Specialty Start Date End Date Zafar Reynolds DO [address] [place] [phone] PCP - General Internal Medicine 07/23/24 documented as of this encounter
[2024-12-04 10:10] LABS: MANUAL DIFF FLAG NO
[2024-12-04 10:19] LABS: Hematocrit 39.4 % (37.0-47.0); Hemoglobin 13.3 g/dl (12.0-16.0); Imm Gran Abs Auto 0.02 X10*3/uL (0.00-0.03); Imm Gran Pct Auto 0.3 % (0.0-0.4); Lymphocytes Absolute Auto 2.0 X10*3/uL (1.2-4.9); Mean Corpuscular HGB Conc 33.8 g/dl (31.0-35.0); Mean Corpuscular Hemoglobin 30.4 pg (27.0-33.0); Mean Corpuscular Volume 90.2 fL (80.0-98.0); NRBC Abs Auto 0.000 X10*3/uL (0.0-0.012); NRBC Pct Auto 0.0 /100WBC (0.0-0.2); Platelet Count 304 X10*3/uL (160-400); Red Blood Count 4.37 X10*6/uL (4.20-5.50); White Blood Count 6.0 X10*3/uL (4.8-10.8)
[2024-12-04 10:33] LABS: Hemoglobin A1C 133.2493 umol/L; Total Hemoglobin (HGBA1C) 3501.9478 umol/L
[2024-12-04 10:48] LABS: Alanine Aminotransferase 23 U/L (0-31); Albumin Level 4.3 g/dL (3.5-5.0); Alkaline Phosphatase 36 U/L (39-117); Anion Gap 11 (12-20); Aspartate Amino Transferase 25 U/L (5-31); Blood Urea Nitrogen 15 mg/dL (9-16); Calcium 9.0 mg/dL (8.4-10.2); Carbon Dioxide 27 mmol/L (22-29); Chloride 106 mmol/L (96-108); Cholesterol 167 mg/dL (<200); Estimated Glomerular Filt Rate > 60; HDL Cholesterol 71 mg/dL (>40); Magnesium 1.8 mg/dL (1.6-2.6); Potassium 3.5 mmol/L (3.3-5.1); Sodium 140 mmol/L (135-145); Total Protein 6.6 g/dL (6.5-8.0); Triglycerides 54 mg/dL (<150)
[2024-12-04 11:27] LABS: Folate 7.1 ng/mL (> or = 4.0); Vitamin B12 381 pg/mL (200-900)
== END 2024-12-04 07:48 | disposition home or self-care (01) ==
LOC: HO.HMGCLDS 07:47
PROVIDERS: PCP Physician Assistant Medical; Visit Provider Physician Assistant Medical
DX: Z00.00 Encounter for general adult medical examination without abnormal findings (principal); Z13.1 Encounter for screening for diabetes mellitus; Z13.6 Encounter for screening for cardiovascular disorders
CPT/HCPCS: 36415; 80053; 80061; 80076; 82248; 82306; 82607; 82746; 83036; 83735; 84443; 85025; 85652; 86140